=== PATIENT | male | born 1985 | race Caucasian/White ===

== ENCOUNTER 2017-07-21 12:53 | Inpatient (IN) | payer BC, OTHER ==
[~2017-07-21] VITALS: Ht 170.2 cm; Wt 93.0 kg
--- NOTE | 2017-07-21 14:40 | NUR ---
PRE-ADMISSION Pt is a 32 yr old male presenting himself in intake for heroin, etoh and meth use. Pt VS are WNL. No acute distress noted. Pt stated of using 0.3g of heroin prior to coming to [facility]. Pt was seen and examined by Dr. Pereira. Pt is in stable condition and will be admitted in the unit.
[2017-07-21 14:45] VITALS: BP 128/89
--- NOTE | 2017-07-21 15:30 | NUR ---
ADMISSION Pt is a 32 yr old male, awake, alert and oriented x4. Pt is presenting himself to [facility] for heroin, ETOH, and meth use. Pt is observed to be calm. Pt denies any s/s of w/d at this time. Pt states of smoking heroin 0.3g prior to coming into intake. Body check was complete. Skin is intact, warm and dry to touch. No tremors seen or felt. Respirations are even and unlabored. Lung sounds are clear. Pt denies any n/v, pt denies any pain or discomfort. Pt denies any allergies or hx of seizures. Pt states of PMH of having 8 Tracheotomy surgeries from the ages of 1 years up to 7 years old. No home medications was reported or brought. Pt states of having PCP, Dr. Campuzano from [facility]. Pt states he is presenting himself to [facility] because he is not able to stop using and wishes to detox safely. Pt is cooperative with assessment. COWS score is 3, CIWA score is 1 upon admission. SUBSTANCE USE: 1. Heroin - Pt states he first started using heroin at the age of 16 yrs old. Pt states of using 0.5g smoke/snort daily for the past 6 months. Last use was on 07/21/17 smoked 0.3g prior upon admission. 2. ETOH - Pt states he first started using ETOH at the age of 14 yrs old. Pt states he would drink 3-4x a week and would drink what was available. Pt states he would drink "a few beers" or "take a few shots of whiskey". last drink was on 07/17/17. Pt is unable to recall amount used. 3. Meth -Pt states he first started using Meth at 21 yrs old- Pt states of smoking or snorting "occasionally". Pt can not recall amount of use. Last use was on 07/17/17. Treatment: Pt states of going to [facility] at the age of 19 yrs old. Pt states of being there for 1 week then relapsed. Pt was seen and examined by Dr. Pereira. Pt is to start on 5 day Subutex taper on 07/22/17 in the morning. Pt was educated on medication regimen and disease process. Pt was able to verbalize understanding. Pt was oriented around unit and equipment in room. Safety precautions observed. Call light is within reach. Will continue to monitor.
[2017-07-21 15:52] LABS: BASOPHILS % (AUTO) 0.4 % (0.0-2.0); EOSINOPHILS # (AUTO) 0.1 K/uL (0.0-0.7); EOSINOPHILS % (AUTO) 0.8 % (0.0-7.0); HEMATOCRIT 48.9 % (40-50); HEMOGLOBIN 16.4 G/DL (14.0-18.0); LYMPHOCYTES # (AUTO) 1.5 K/UL (0.8-4.8); MEAN CORPUSCULAR HEMOGLOBIN 29.6 UUG (27.0-31.0); MEAN CORPUSCULAR HGB CONC 34 g/dL (32.0-37.0); MEAN CORPUSCULAR VOLUME 88.6 FL (82.0-92.0); MONOCYTES # (AUTO) 0.5 K/UL (0.1-1.30); MONOCYTES % (AUTO) 7.8 % (0.0-11.0); NEUTROPHILS # (AUTO) 4.5 K/UL (1.8-8.9); PLATELET COUNT (AUTO) 189 K/UL (150-450); RED BLOOD CELL COUNT(AUTO) 5.52 MIL/UL (4.7-6.1); WHITE BLOOD COUNT (AUTO) 6.6 K/UL (4.0-11.2)
[2017-07-21 16:00] VITALS: BP 125/85
[2017-07-21 16:13] LABS: ALANINE AMINOTRANSFERASE 60 U/L (16-63); ALKALINE PHOSPHATASE 62 U/L (50-136); ASPARTATE AMINOTRANSFERASE 36 U/L (15-37); BILIRUBIN,TOTAL 0.8 mg/dL (0.2-1.0); CARBON DIOXIDE 28 mmol/L (21-32); CHLORIDE 103 mmol/L (98-107); GLUCOSE 93 mg/dL (74-106); MAGNESIUM 2.2 mg/dL (1.8-2.4); POTASSIUM 4.2 mmol/L (3.5-5.1); TOTAL PROTEIN, SERUM 7.9 g/dL (6.4-8.2); UREA NITROGEN, BLOOD 16 mg/dL (7-18)
[2017-07-21 16:26] LABS: ETHANOL < 3 MG/DL (0-0)
[2017-07-21 16:56] LABS: *AMPHETAMINE, URINE NEGATIVE (NEGATIVE); *BARBITURATE, URINE NEGATIVE (NEGATIVE); *CANNABINOID, URINE NEGATIVE (NEGATIVE); *COCCAINE, URINE NEGATIVE (NEGATIVE); *OPIATE, URINE POSITIVE (NEGATIVE); *PHENCYCLIDINE SCREEN,URINE NEGATIVE (NEGATIVE)
--- NOTE | 2017-07-21 18:52 | NUR ---
END OF SHIFT Pt is a 32 yr old male, A&Ox4. Pt is a new admit for Opiate/ETOH Dependence and will start on 5 day Subutex taper on 07/22/17. Pt is in stable condition. No PRN's were given. Last COWS score was 1 and CIWA score was 1 at 1600. No acute distress noted. VS are WNL. Safety precautions are observed. Call light is within reach.
[2017-07-21 20:00] VITALS: BP 127/77
--- NOTE | 2017-07-21 20:00 | NUR ---
START OF SHIFT NOTE PATIENT IN HIS ROOM, WATCHING TV, ALERT AND ORIENTED X 4. RESPIRATION EVEN AND UNLABORED. PATIENT C/O NAUSEA , NO EMESIS AND SWEATING. PATIENT WITH GENERALIZED BODY ACHES 3/10, TOLERABLE , DOES NOT WANT PAIN MEDS. PATIENT STATES HE'S ALRIGHT FOR NOW. RECEIVED REPORT FROM DAY SHIFT NURSE. PATIENT IS A 32 YEAR OLD MALE NEWLY ADMITTED FOR OPIATE/ETOH DEPENDENCE. PATIENT WAS PLACED ON 5 DAY SUBUTEX TAPER, TO START TOMORROW.PATIENT REPORTS NO SEIZURE HISTORY. SKIN INTACT. PATIENT DID NOT REQUIRE ANY PRN MEDICATION. LAST COWS 1 AND CIWA 1. ON FALL PRECAUTION. SAFETY MEASURES IN PLACE. CALL LIGHT IN REACH. WILL CONTINUE TO MONITOR.
--- NOTE | 2017-07-21 20:46 | NUR ---
PRN ZOFRAN ADMINISTRATION PATIENT C/O NAUSEA BUT NO EMESIS. PRN ZOFRAN GIVEN. WILL MONITOR FOR EFFECTIVENESS
--- NOTE | 2017-07-21 21:16 | NUR ---
PRN ZOFRAN RE-ASSESSMENT PATIENT STATES NAUSEA CEASED. WILL CONTINUE TO MONITOR
[2017-07-22] VITALS: BP 127/80
[2017-07-22 04:00] VITALS: BP 95/66
--- NOTE | 2017-07-22 07:05 | NUR ---
END OF SHIFT NOTE PATIENT IN HIS ROOM MOST OF THE SHIFT. PATIENT WAS PLACED ON 5 DAY SUBUTEX TAPER, TO START TODAY. PATIENT REPORTS NO SEIZURE HISTORY. SKIN INTACT. PATIENT C/O NAUSEA BEGINNING OF SHIFT . PRN ZOFRAN GIVEN AND EFFECTIVE. ON FALL PRECAUTION. SAFETY MEASURES IN PLACE. CALL LIGHT IN REACH. WILL CONTINUE TO MONITOR. SLEPT 6 HOURS. FLUID INTAKE 1,355 ML. VOIDED X 2 . NO BM.LAST COWS 1 AND CIWA 1.
--- NOTE | 2017-07-22 07:30 | NUR ---
Start of shift note; Received report from night nurse. Patient is a 32 year old male admitted on 07/21/17 for Opiate withdrawals. Patient to start 5 day Subutex today at 0900. Patient reported history of tracheotomy when he was 1 year old. NKA, full code status, regular diet. Patient is on fall and seizure precautions. Bed in lowest position, call light within reach. All safety measures secured. Will continue to monitor patient.
[2017-07-22 08:00] VITALS: BP 110/70
[2017-07-22 11:10] LABS: HEPATITIS B SURFACE AG Negative (Negative)
[2017-07-22 12:00] VITALS: BP 133/84
[2017-07-22 16:00] VITALS: BP 113/86
--- NOTE | 2017-07-22 18:05 | NUR ---
End of shift note; Patient is AOX4. Patient is a 32 year old male admitted on 07/21/17 for Opiate withdrawals. Patient was started on Subutex taper, no adverse reactions noted. Patient reported history of tracheotomy when he was 1 year old. NKA, full code status, regular diet. Patient is on fall and seizure precautions. Bed in lowest position, call light within reach. All safety measures secured. Patient remained compliant with treatment plan and medication regime. Met all needs.
--- NOTE | 2017-07-22 19:03 | NUR ---
PRN medication; Patient's appears very anxious, showing signs and symptoms of withdrawals manifested by Agitation, tremors, hot and cold sweats, muscle aches. PRN Ativan 1mg PO PRN given for CIWA of 7. Will endorse to night nurse for re-assessment. All safety measures secured. Addendum: 07/22/17 at 1906 by MAYITO BRAMBILA LVN DISREGARD ABOVE NOTES; WRONG PATIENT DOCUMENTATION.
[2017-07-22 20:00] VITALS: BP 122/89
--- NOTE | 2017-07-22 20:00 | NUR ---
Start of Shift Patient is a 32-year old, male, admitted for Opiate withdrawals. Patient with NKA, on Regular Diet and is Full Code. With history of Anxiety, Depression and Tracheostomy Reconstructive Repair at 1 year old. Placed by MD on a 5-day Subutex taper starting 07/22/2017, with no adverse reaction noted. Pt is AAOx4 and with no anxiety at this time. No SOB noted, ambulatory with steady gait. No open skin noted. Fall, seizure, universal and safety prec in place. Call light within reach. Kept pt warm, dry and comfortable. Latest COWS=6, CIWA=4. Will continue to monitor pt.
[2017-07-23] VITALS: BP 118/87
[2017-07-23 04:00] VITALS: BP 127/76
--- NOTE | 2017-07-23 07:05 | NUR ---
End of Shift Patient is a 32-year old, male, admitted for Opiate withdrawals. Patient with NKA, on Regular Diet and is Full Code. With history of Anxiety, Depression and Tracheostomy Reconstructive Repair at 1 year old. Placed by MD on a 5-day Subutex taper starting 07/22/2017, with no adverse reaction noted. Pt is AAOx4 and with no anxiety at this time. No SOB noted, ambulatory with steady gait. No open skin noted. Fall, seizure, universal and safety prec in place. Call light within reach. Kept pt warm, dry and comfortable. Latest COWS=5, CIWA=4, slept for 1 hour. Endorsed to AM shift nurse for continuity of care.
--- NOTE | 2017-07-23 07:30 | NUR ---
Start of shift note; Received report from night nurse. Patient is a 32 year old male admitted on 07/21/17 for Opiate withdrawals. Patient was placed on 5 day Subutex taper, no adverse reactions noted. Patient reported history of tracheotomy when he was 1 year old. NKA, full code status, regular diet. Patient is on fall and seizure precautions. Bed in lowest position, call light within reach. All safety measures secured. Will continue to monitor patient.
[2017-07-23 08:00] VITALS: BP 128/72
[2017-07-23 12:00] VITALS: BP 113/82
[2017-07-23 16:00] VITALS: BP 135/81
--- NOTE | 2017-07-23 18:11 | NUR ---
End of shift note; Patient is AOX4. Patient is a 32 year old male admitted on 07/21/17 for Opiate withdrawals. Patient was started on Subutex taper, no adverse reactions noted. Patient reported history of tracheotomy when he was 1 year old. NKA, full code status, regular diet. Patient is on fall and seizure precautions. Bed in lowest position, call light within reach. All safety measures secured. Patient remained compliant with treatment plan and medication regime. Medications were effective in reducing withdrawal symptoms.Patient participated in group activities and therapies. Met all needs.
--- NOTE | 2017-07-23 19:15 | NUR ---
START OF SHIFT NOTE : Patient is a 32-year old, male, admitted for Opiate withdrawals. Patient with NKA, on Regular Diet and is Full Code. With history of Anxiety, Depression and Tracheostomy Reconstructive Repair at 1 year old. Placed by MD on a 5-day Subutex taper starting 07/22/2017, with no adverse reaction noted. Pt is AAOx4 and with no anxiety at this time. No SOB noted, ambulatory with steady gait. No open skin noted. Fall, seizure, universal and safety prec. in place. LAST CIWA=3, COWS=6 at 16:00. Safety measures in place : bed on lowest position with side rails x2 up for safety, call light within reach. Will continue to monitor closely and offer help.
[2017-07-23 20:00] VITALS: BP 101/61
--- NOTE | 2017-07-23 21:00 | NUR ---
PRN BENADRYL Pt. complains of sleeplessness. PRN BENADRYL given as ordered. Safety measures in place : bed on lowest position with side rails x2 up for safety, call light within reach. Will continue to monitor closely and offer help.
--- NOTE | 2017-07-23 22:00 | NUR ---
RE-ASSESSMENT LELE Pt. is sleeping, RR=16, unlabored and even. Safety measures in place : bed on lowest position with side rails x2 up for safety, call light within reach. Will continue to monitor closely and offer help.
--- NOTE | 2017-07-24 06:45 | NUR ---
END OF SHIFT NOTE : Patient is a 32-year old, male, admitted for Opiate withdrawals. Patient with NKA, on Regular Diet and is Full Code. With history of Anxiety, Depression and Tracheostomy Reconstructive Repair at 1 year old. Placed by MD on a 5-day Subutex taper starting 07/22/2017, with no adverse reaction noted. Pt is AAOx4 and with no anxiety at this time. No SOB noted, ambulatory with steady gait. No open skin noted. Fall, seizure, universal and safety prec. in place Pt remains compliant with the treatment plan. PRN BENADRYL given during my shift. V/S remain WNL. RR=16, even and unlabored, lungs clear upon auscultation, abdomen soft and non- distended. Pt denies nausea, vomiting and diarrhea. LAST CIWA=2 ,COWS=4 at 0400 , MOIHIB=[id number] ml, voided x2 , slept 6 hours. Safety measures in place : bed on lowest position with side rails x2 up for safety, call light within reach. Will continue to monitor closely and offer help.
[2017-07-24 08:00] VITALS: BP 118/86
--- NOTE | 2017-07-24 09:01 | NUR ---
PRN DULCOLAX Patient complains of constipation, prn dulcolax po given. Will continue to monitor patient.
--- NOTE | 2017-07-24 09:30 | NUR ---
START OF SHIFT Received report from caustic cresylate shift superintendent nurse. Patient is 32 year old male admitted for medically supervised withdrawal from heroin and alcohol. Patient is full code with NKA. Patient on 5-day subutex taper. On assessment this AM: CIWA: 4 and COWS: 3. Denies SOB, chest pain. Patients vitals signs: 118/86, HR 73, R 16, Temp 98, pain 6/10. Reports mild anxiety, constipation (reports last BM was 3-4 days ago), body aches (knee pain), sore throat and twitching of arms. Med compliant with AM meds. PRN dulcolax given. PPD skin test read on LFA (negative result). Instructed patient to drink po fluids. Patient was encouraged to attend group meetings today. Will continue to monitor patient.
--- NOTE | 2017-07-24 10:01 | NUR ---
REASSESSMENT DULCOLAX Patient has not had BM at this time. Will continue to monitor patient.
[2017-07-24 12:00] VITALS: BP 119/90
--- NOTE | 2017-07-24 12:06 | NUR ---
PRN IBUPROFEN AND METHOCARBAMOL Patient complains of knee pain and legs, 5/10, prn ibuprofen and methocarbamol given. Will continue to monitor patient.
--- NOTE | 2017-07-24 13:06 | NUR ---
REASSESSMENT PRN IBUPROFEN AND METHOCARBAMOL Patient reports pain decreased to 3/10.
--- NOTE | 2017-07-24 13:23 | NUR ---
PRN MIRALAX POWDER Patient complains of constipation, prn miralax powder given, will continue to monitor patient.
--- NOTE | 2017-07-24 14:23 | NUR ---
REASSESSMENT MIRALAX POWDER Patient has not had BM at this time. Will continue to monitor patient.
[2017-07-24 16:00] VITALS: BP 123/83
--- NOTE | 2017-07-24 18:39 | NUR ---
PRN CEPACOL Patient complains of sore throat, 12/20. PRN cepacol given, will continue to monitor patient.
--- NOTE | 2017-07-24 18:44 | NUR ---
END OF SHIFT Patient is 32 year old male admitted for medically supervised withdrawal from heroin and alcohol. Patient is full code with NKA. Patient on 5-day subutex taper.Most recent CIWA: 2 and COWS: 2. Compliant with routine meds during this shift. Reports mild anxiety, body aches (knee pain), sore throat and twitching of arms. Med compliant this shift. PRN dulcolax and miralax powder and ONE time magnesium citrate given, had BM X21 in the afternoon. PRN ibuprofen, methocarbamol and cepacol given. PPD skin testread on LFA (negative result). Instructed patient to drink po fluids. engraver letterback tender paper machine will continue to monitor patient.
--- NOTE | 2017-07-24 19:49 | NUR ---
Reassessment Cepacol: Patient denies having throat pain at this time. Cepacol was effective. Will continue to monitor closely.
[2017-07-24 20:11] VITALS: BP 121/84
--- NOTE | 2017-07-24 20:20 | NUR ---
Start of shift: Rec'd 32 year old male admitted on 07/21/17 for Opiate withdrawals. Patient was placed on 5 day Subutex taper and tolerating well. Patient is awake, alert and oriented x4. Afebrile and vital signs are stable. No signs of acute resp distress. No signs of withdrawal observed at this time. Patient encouraged to drink plenty of fluids to aid in detoxing. No other concerns at this time. Fall, safety and seizure precaution in progress. Bed is in lowest position,side rails are up and call light within reach. Will continue to monitor closely.
[2017-07-25 04:37] VITALS: BP 121/88
--- NOTE | 2017-07-25 06:28 | NUR ---
End of shift: Patient is AOX4. Afebrile and vital signs were stable. Patient is a 32 year old male admitted on 07/21/17 for Opiate withdrawals. Patient was started on Subutex taper and has been tolerating it well. Patient had a uneventful night. Patient slept a total of 7 hrs and 45 minutes. Patient latest COWS score is 2 and CIWA score is 2. Patient remained compliant with treatment plan and medication regime. Medications were effective in reducing withdrawal symptoms. Patient participated in group activities and therapies. No other concerns at this time. All needs were met. safety precaution maintained. Will endorse to oncoming shift to follow up care.
--- NOTE | 2017-07-25 07:15 | NUR ---
Start of Shift Report from night nurse: pt is a 32 y/o male here for Opiates r/t Heroin 0.5g smoked and snorted for 6 months, Etoh r/t beer and whiskey used 3-4x/wk and Methamphetamine used occasionally for 6 months. Pt is a full code, NKA, regular diet, fall precautions ordered. HHx: Tracheotomy as a child and relapse. V/S stable. Skin is intact. No PRN's given last night. Pt is awake and getting ready to go smoke. Last COWS 2 CIWA 2. Will cont. to monitor the pt.
[2017-07-25 08:00] VITALS: BP 130/79
--- NOTE | 2017-07-25 09:42 | NUR ---
PRN Medication Administration Pt c/o ROLLINS and has N/V; PRN Zofran 4mg SL given with 2 bottles of power aid, 3 bottles of Vitamin water and 2 bottles of water with F&E imbalance intervention needed. I notified CN and of pt's vomiting and how he states he had diarrhea x 2 at around 0400am but did not tell the night nurse so I instructed him to tell the night auditor nurse of any FARRAH. Will reassess in 30 minutes. Addendum: 07/25/17 at 0954 by TITI BARTLETT RN PRN Motrin 600mg given PO.
--- NOTE | 2017-07-25 10:45 | NUR ---
Reassessment No recurrent N/V and pt denies ROLLINS; Motrin and Zofran are effective. Will cont. to monitor the pt.
[2017-07-25 12:00] VITALS: BP 98/44
[2017-07-25 12:01] VITALS: BP 100/65
[2017-07-25 16:00] VITALS: BP 110/83
--- NOTE | 2017-07-25 19:30 | NUR ---
Start of Shift Note: Patient is a 32 y/o male admitted on 07/21/17 for ETOH and Opiate dependence. Patient reported smoking/snorting 0.5 gram daily for 6 months and drinking duane shots of whiskey daily for 6 months. Patient reported hx of Tracheotomy when he was 1 year old. No seizure history noted. Patient is on a Subutex and Ativan taper and tolerating well. Last COWS 4 CIWA 3. Pt was given PRN Zofran SL and Motrin during day shift. Patient remains stable and vitals WNL. Patient is alert & oriented x4. Patient is ambulatory with a steady gait. No shortness of breath noted. Respiration even & unlabored. Abdomen soft & non-distended. No nausea/vomiting noted. Patient presented with 7/10 lower back pain & generalized body aches, sweating, chills, stuffy nose & anxiety. No hand tremors noted. Patient denies hallucinations. Safety measures in place. Bed locked in lowest position. Both side rails up. Call light within pt's reach. Will continue to monitor patient.
--- NOTE | 2017-07-25 19:39 | NUR ---
End of Shift Report to night nurse: pt is a 32 y/o male here for Opiates r/t Heroin 0.5g smoked and snorted for 6 months, Etoh r/t beer and whiskey used 3-4x/wk and Methamphetamine used occasionally for 6 months. Pt is a full code, NKA, regular diet, fall precautions ordered. HHx: Tracheotomy as a child and relapse. V/S stable. Skin is intact. Pt had N/V with PRN Zofran given during my shift and is effective with Dr. Pereira notified. PRN Motrin given also. No new orders during my shift. Last COWS 4 CIWA 3.
[2017-07-25 20:00] VITALS: BP 110/76
[2017-07-26] VITALS: BP 106/75
[2017-07-26 04:00] VITALS: BP 131/91
--- NOTE | 2017-07-26 07:15 | NUR ---
End of Shift Note: Pt had an uneventful night. Pt continues on his Subutex and Ativan taper and he is tolerating well . Last COWS 4 CIWA 3. No PRN medications were given. Pt is alert & oriented x4. Pt remained stable and vitals remains WNL. Pt remained compliant with medications and treatment. All needs have been met, All safety measures in place per hospital policy. Bed in lowest position, side rails up x2, call-light within reach. Pt slept for a total of 7 hours. Pt consumed 1846ml of fluids. Voided 3x with no bowel movement. Will continue to monitor.
--- NOTE | 2017-07-26 07:35 | NUR ---
START OF SHIFT Pt is a 32 yr old male, AA&Ox4. Pt was admitted on 07/21/17 for Opiate/ETOH Dependence and is on 5 day Subutex and 5 day Ativan taper as ordered. Medication rober well. Received report from caustic cresylate shift superintendent nurse. Pt slept for 7 hr during the night. Last COWS score was 4 CIWA score was 3 at 2200. Pt is currently c/o left eye discomfort. No discharged or redness noted. Pt was educated on proper eye care. Will continue to monitor. Safety precautions observed. call light is within reach. Will continue to monitor.
[2017-07-26 08:00] VITALS: BP 113/82
[2017-07-26 12:00] VITALS: BP 110/81
[2017-07-26] MEDS ORDERED: IBUP-1955 PO (14:26)
[2017-07-26] MEDS ORDERED: DIPH50CA37 PO (14:26)
[2017-07-26] MEDS ORDERED: GABA-534 PO (14:26)
[2017-07-26] MEDS ORDERED: BACL20TA PO (14:26)
[2017-07-26] MEDS ORDERED: DICY20TA28 PO (14:26)
[2017-07-26] MEDS ORDERED: CLON0.2T12 PO (14:26)
[2017-07-26] MEDS ORDERED: CLON0.1T14 PO (14:26)
[2017-07-26 16:00] VITALS: BP 121/82
--- NOTE | 2017-07-26 18:48 | NUR ---
END OF SHIFT Pt is a 32 yr old male, AA&Ox4. Pt was admitted on 07/21/17 for Opiate/ETOH Dependence and has completed 5 day Subutex and 5 day Ativan taper as ordered. Medication rober well.Pt has been cooperative with medication regimen and attended group sessions. Pt is to be discharged tomorrow on 07/27/17 to [facility]. No PRN's were given during the day. Last COWS score was 4 and CIWA score was 2 at 1600. Skin is intact, warm and dry to touch. No tremors seen or felt. Pt denies any n/v. Safety precautions observed. Call light is within reach.
--- NOTE | 2017-07-26 19:15 | NUR ---
Start of Shift Note: Patient is a 32 y/o male admitted on 07/21/17 for ETOH and Opiate dependence. Patient reported hx of Tracheotomy when he was 1 year old. No seizure history noted. Patient completed his Subutex and Ativan taper and he is scheduled to be discharge tomorrow. Last COWS 4 CIWA 2. No PRN medications given during day shift. Patient remains stable and vitals WNL. Patient is alert & oriented x4. Patient is ambulatory with a steady gait. No shortness of breath noted. Respiration even & unlabored. Abdomen soft & non-distended. No nausea/vomiting noted. Patient presented with 6/10 knee pain, sweating & slight anxiety. No hand tremors noted. Patient denies hallucinations. Safety measures in place. Bed locked in lowest position. Both side rails up. Call light within pt's reach. Will continue to monitor patient.
[2017-07-26 20:00] VITALS: BP 124/78
--- NOTE | 2017-07-26 21:09 | NUR ---
PRN Benadryl Patient requesting for medication to help him sleep. PRN Benadryl administered as ordered. Will continue to monitor patient.
[2017-07-27] VITALS: BP 124/72
[2017-07-27 04:00] VITALS: BP 118/76
--- NOTE | 2017-07-27 07:19 | NUR ---
End of Shift Note: Pt had an uneventful night. Pt completed his Subutex and Ativan taper and he is scheduled to be discharge today . Last COWS 4 CIWA 2. Pt was given PRN Benadryl for sleep. Pt is alert & oriented x4. Pt remained stable and vitals remains WNL. Pt remained compliant with medications and treatment. All needs have been met, All safety measures in place per hospital policy. Bed in lowest position, side rails up x2, call-light within reach. Pt slept for a total of 6 hours. Pt consumed 1692 ml of fluids. Voided 2x with no bowel movement. Will continue to monitor.
--- NOTE | 2017-07-27 08:00 | NUR ---
START OF SHIFT NOTE. 32 yr old male, awake, alert and oriented x4. Pt is presenting himself to [facility] for heroin, ETOH, and meth use. Pt to be discharged today to [facility] inpatient rehabilitation facility. Pt appears somewhat nervous but is also eager. Bed in low position, call light, safety measures in place.
[2017-07-27 08:25] VITALS: BP 116/66
--- NOTE | 2017-07-27 09:30 | NUR ---
DISCHARGE NOTE Pt in stable condition, vitals WNL, alert and oriented, skin intact. Denies suicidal ideations, All discharge paperwork completed, dated and signed. Pt educated about discharge instructions, transfer to [facility] inpatient rehabilitation facility. Pt verbalized understanding. At 0830, COWS 3 and CIWA 3. At 0730, blood pressure 116/66, pulse 89, respirations 19, oxygen saturation 95 percent on room air, temperature 97.6. Discharge time from [facility] on 07/27/17 at 0925 via private car company [employer] to [facility]. Patient left building with all of his belongings and prescription. Pt did not bring any prescriptions with him to the unit. contacted and notified of Pt's discharge.
== END 2017-07-27 09:25 | disposition other institution (70) | DRG 895 ==
LOC: SRC 13:41
PROVIDERS: ADMIT Internal Medicine; ATTEND Internal Medicine
PROC: HZ2ZZZZ Detoxification Services for Substance Abuse Treatment (ICD-10-PCS; principal; 2017-07-21)
PROC: HZ31ZZZ Individual Counseling for Substance Abuse Treatment, Behavioral (ICD-10-PCS; 2017-07-22)
PROC: HZ41ZZZ Group Counseling for Substance Abuse Treatment, Behavioral (ICD-10-PCS; 2017-07-24)
DX: F11.23 Opioid dependence with withdrawal (principal); F10.230 Alcohol dependence with withdrawal, uncomplicated; Y90.9 Presence of alcohol in blood, level not specified; Z80.3 Family history of malignant neoplasm of breast; F41.9 Anxiety disorder, unspecified; Z91.89 Other specified personal risk factors, not elsewhere classified; F17.210 Nicotine dependence, cigarettes, uncomplicated; F32.9 Major depressive disorder, single episode, unspecified; F13.230 Sedative, hypnotic or anxiolytic dependence with withdrawal, uncomplicated; G47.50 Parasomnia, unspecified; F14.10 Cocaine abuse, uncomplicated; F15.10 Other stimulant abuse, uncomplicated; K59.03 Drug induced constipation; F51.4 Sleep terrors [night terrors]
CPT/HCPCS: 36415; 70030-TC; 80307; 80361; 83735; 85025; 86580; 86592; 86705; 86803; 87340; 87806; A4663; G0480; Q0162; Q0163